=== PATIENT | male | born 1985 | race Two or more races ===

== ENCOUNTER 2017-02-13 13:34 | Emergency (ER) | payer OTHER ==
[~2017-02-13] VITALS: Ht 170.2 cm; Wt 77.1 kg
[2017-02-13 13:34] VITALS: BP 143/74
--- NOTE | 2017-02-13 14:20 | NUR ---
CARLOS BABB AT BEDSIDE FOR EVAL.
[2017-02-13] MEDS ORDERED: SULFAMETH/TRIMETH 800/160 MG 1 UDTAB TABLET PO ONE ×2 (14:30→14:32)
[2017-02-13] MEDS ORDERED: IBUPROFEN 600 MG TABLET PO ONE ×2 (14:30→14:32)
--- NOTE | 2017-02-13 14:46 | NUR ---
RADIOLOGY AT BEDSIDE FOR CHEST, R ELBOW AND R KNEE XRAY.
--- NOTE | 2017-02-13 15:44 | NUR ---
PT IS MEDICALLY CLEARED FOR BOOKING. COPIES OF XRAY PROVIDED TO PD. D/C W/ ANTIBIOTIC PRESCRIPTION. ACI GIVEN. STABLE CONDITION.
== END 2017-02-13 15:48 | disposition home or self-care (01) ==
LOC: ER 13:36
DX: L03.113 Cellulitis of right upper limb (principal); F15.10 Other stimulant abuse, uncomplicated; S80.01XA Contusion of right knee, initial encounter; M25.521 Pain in right elbow; V43.52XA Car driver injured in collision with other type car in traffic accident, initial encounter; Y93.89 Activity, other specified; Y92.488 Other paved roadways as the place of occurrence of the external cause; Y99.8 Other external cause status
CPT/HCPCS: 71010-TC; 73080-TC; 73564-TC; A4606; Z7610